=== PATIENT | female | born 1965 | race Caucasian/White ===

== ENCOUNTER 2024-04-22 10:40 | Outpatient (CLI) | payer MEDICARE, MEDICAID, SELFPAY ==
--- NOTE | 2024-04-22 10:48 | XRR_ITS ---
PROCEDURE INFORMATION: Exam: XR Chest Exam date and time: 04/22/2024 11:16 AM Age: 58 years old Clinical indication: Condition or disease; Lung condition and disease; Patient HX: Acute bronchitis and sarcoidosis of lung, cough x 1.5 weeks, mild chest pains and congestion; Additional info: Acute bronchitis/sarcoidosis of lung TECHNIQUE: Imaging protocol: Radiologic exam of the chest. Views: 2 views. Total images: 2 COMPARISON: CT angio chest PE protcl [id number] 07/12/2017 5:24 PM FINDINGS: Tubes, catheters and devices: Surgical clips noted overlying the paramedian left chest anteriorly. Lungs: Clear. Pleural spaces: No pleural effusion identified. Heart/Mediastinum: Cardiomediastinal silhouette is stable.. Bones/joints: Multilevel cervical fusion procedure. Organs: Multiple gallstones again demonstrated in the right upper quadrant of the abdomen. XR/XR chest 2V* [id number] IMPRESSION: No acute cardiopulmonary abnormality identified.
== END 2024-04-22 10:41 | disposition home or self-care (01) ==
LOC: RAD 10:45
PROVIDERS: PCP Nurse Practitioner Family; Visit Provider Nurse Practitioner Family
DX: J20.9 Acute bronchitis, unspecified (principal); D86.0 Sarcoidosis of lung; K80.20 Calculus of gallbladder without cholecystitis without obstruction
CPT/HCPCS: 71046

== ENCOUNTER 2024-10-01 15:13 | Outpatient (CLI) | payer OTHER, SELFPAY ==
--- NOTE | 2024-10-01 | MM_ITS ---
WS: [email or web address] BILATERAL 3D TOMOSYNTHESIS DIGITAL SCREENING MAMMOGRAPHY WITH CAD CLINICAL INFORMATION: ANNUAL SCREENING HISTORY: Screening mammogram. No current complaints. COMPARISON: 2017 TECHNIQUE: Bilateral CC and MLO views. FINDINGS: Scattered fibroglandular densities bilaterally. No suspicious focal mass, asymmetry, calcifications, or architectural distortion. No evidence of malignancy. Vascular calcification. MM/MM scr tomosynthesis [id number] IMPRESSION: DENSITY: There are scattered areas of fibroglandular density. BI-RADS: 2 - Benign. FOLLOW UP: 1 Year Follow-up Recommend return to annual screening mammography.
== END 2024-10-01 15:14 | disposition home or self-care (01) ==
LOC: RAD 15:16
PROVIDERS: PCP Nurse Practitioner Family; Visit Provider Nurse Practitioner Family
DX: Z12.31 Encounter for screening mammogram for malignant neoplasm of breast (principal); R92.323 Mammographic fibroglandular density, bilateral breasts; R92.1 Mammographic calcification found on diagnostic imaging of breast
CPT/HCPCS: 77063; 77067

== ENCOUNTER 2024-10-14 12:34 | Outpatient (CLI) | payer OTHER, MEDICAID, SELFPAY ==
--- NOTE | 2024-10-14 12:41 | XR_ITS ---
WS: [email or web address] Exam: XR knee RT 1-2V [id number] Date/Time of Exam: 10/14/2024 12:45 PM Reason For Exam: RT KNEE PAIN No fracture. The joint compartments are preserved. No joint effusion. Normal soft tissues. Anterior spurring of the patella. XR/XR knee RT 1-2V [id number] IMPRESSION: 1. No fracture or other significant finding.
--- NOTE | 2024-10-14 12:41 | XR_ITS ---
WS: [email or web address] Exam: XR shoulder RT min 2V* [id number] Date/Time of Exam: 10/14/2024 12:45 PM Reason For Exam: RT SHOULDER PAIN No acute fracture. Moderately advanced DJD of the glenohumeral joint noted. Subcortical cyst formation in the humeral head and glenoid. Marginal osteophyte along the medial inferior humeral head. Arthrosis and bone spurring at the AC joint. Normal soft tissues. XR/XR shoulder RT min 2V* [id number] IMPRESSION: 1. Moderately advanced degenerative changes of the shoulder as detailed above. No fracture.
== END 2024-10-14 12:35 | disposition home or self-care (01) ==
PROVIDERS: PCP Nurse Practitioner Family; Visit Provider Nurse Practitioner Family
DX: M19.011 Primary osteoarthritis, right shoulder (principal); M77.8 Other enthesopathies, not elsewhere classified; M85.421 Solitary bone cyst, right humerus; M85.621 Other cyst of bone, right upper arm; M25.711 Osteophyte, right shoulder
CPT/HCPCS: 73030; 73560

== ENCOUNTER → 2025-01-01 09:34 | Outpatient (BNVA) | payer OTHER, SELFPAY | PROVIDERS: PCP Nurse Practitioner Family; Visit Provider Specialist | DX: M25.511 Pain in right shoulder (principal); M85.611 Other cyst of bone, right shoulder; M19.011 Primary osteoarthritis, right shoulder | CPT/HCPCS: 73030; 99205 ==

== ENCOUNTER 2025-01-08 09:12 | Outpatient (CLI) | payer OTHER, SELFPAY ==
--- NOTE | 2025-01-08 09:00 | CT_ITS ---
WS: [id number] CT RIGHT SHOULDER, NONCONTRAST HISTORY: Chronic RIGHT shoulder pain. Technique: All CT scans at [facility] use at least one of these dose optimization techniques: automated exposure control; mA and/or kV adjustment per patient size (includes targeted exams where dose is matched to clinical indication); or iterative reconstruction. DLP: 343.03 mGy.cm COMPARISON: Radiographs 01/01/2025, chest CT 07/12/2017 Mild AC joint arthritis. Small subchondral cysts in the distal clavicle and acromion. No fracture. Normal position of the humeral head and the glenoid. Moderate narrowing of the glenohumeral joint. Numerous subchondral cysts along the glenoid and humeral head. No fracture or loose body. Osteophytic ridging around the humeral head. No muscle atrophy. No joint effusion. Numerous small pulmonary nodules are noted in the RIGHT upper lung and visualized superior aspect of the RIGHT lower lobe. Largest nodule 6 mm in the azygos esophageal recess. There is additional soft tissue along the superior RIGHT hilum. On the localizer image there is a soft tissue mass in the RIGHT infrahilar region. Prior surgical fusion hardware. CT/CT shoulder RT wo con* [id number] IMPRESSION: 1. Advanced glenohumeral joint arthritis with subchondral cystic changes in th e humeral head and glenoid. 2. Mild osteophytic ridging around the humeral head. 3. No fractures. 4. Mild AC joint arthritis. 5. Numerous RIGHT pulmonary nodules and possible RIGHT lower lobe pulmonary ma ss. Recommend follow-up chest CT with IV contrast. Neoplasm needs to be exclude d.
== END 2025-01-08 09:13 | disposition home or self-care (01) ==
PROVIDERS: PCP Nurse Practitioner Family; Visit Provider Specialist
DX: M85.611 Other cyst of bone, right shoulder (principal); M19.011 Primary osteoarthritis, right shoulder
CPT/HCPCS: 73200

== ENCOUNTER 2025-01-13 15:07 | Outpatient (CLI) | payer OTHER, SELFPAY ==
--- NOTE | 2025-01-13 15:15 | MR_ITS ---
WS: [id number] MRI RIGHT SHOULDER NONCONTRAST TECHNIQUE: Sagittal T2, coronal T1, T2 and proton density imaging. Axial gradient PDE imaging. CLINICAL INFORMATION: pain COMPARISON: CT shoulder 01/08/2025 FINDINGS: Moderate to advanced arthritis AC joint with mild downsloping of the acromion. Subacromial spurring with impingement on the distal supraspinatus. Mild narrowing of the subacromial space. Advanced joint space narrowing glenohumeral articulation with subchondral cystic changes in the humeral head and glenoid. Hypertrophic spurring about the medial humeral neck. Subchondral cystic change greater tuberosity. Chronic thinning of the supraspinatus which appears intact. Infraspinatus appears intact. Normal teres minor. Tiny insertional tear distal supraspinatus anteriorly. Subscapularis tendon appears intact. Biceps tendon appears intact within the bicipital groove with medial subluxation along the proximal bicipital groove. Tendinopathy intra-articular biceps tendon. Biceps labral anchor appears intact. Advanced degenerative fraying and fissuring involving the glenoid labrum with advanced underlying subchondral cystic changes in the glenoid. MR/MR shoulder RT wo con* [id number] IMPRESSION: 1. Moderate to advanced arthritis AC joint with mild narrowing of the subacrom ial space and subacromial spurring. 2. Impingement of the distal supraspinatus which appears intact. Tiny insertio nal tear distal supraspinatus. 3. Biceps tendon appears intact within the bicipital groove. Slight medial sub luxation along the proximal bicipital groove. 4. Tendinopathy intra-articular biceps tendon. 5. Advanced joint space narrowing glenohumeral articulation with subchondral c ystic change.
== END 2025-01-13 15:08 | disposition home or self-care (01) ==
LOC: RAD 15:11
PROVIDERS: PCP Nurse Practitioner Family; Visit Provider Specialist
DX: M85.611 Other cyst of bone, right shoulder (principal); M19.011 Primary osteoarthritis, right shoulder; M75.41 Impingement syndrome of right shoulder; S46.011A Strain of muscle(s) and tendon(s) of the rotator cuff of right shoulder, initial encounter; X58.XXXA Exposure to other specified factors, initial encounter; M75.21 Bicipital tendinitis, right shoulder
CPT/HCPCS: 73221

== ENCOUNTER 2025-01-15 15:08 | Outpatient (CLI) | payer OTHER, SELFPAY | END 2025-01-15 15:09 | disposition home or self-care (01) | LOC: SPT 15:08 | PROVIDERS: PCP Nurse Practitioner Family; Visit Provider Specialist | DX: Z46.89 Encounter for fitting and adjustment of other specified devices (principal); M25.511 Pain in right shoulder | CPT/HCPCS: A4565 ==

== ENCOUNTER 2025-02-19 13:11 | Outpatient (CLI) | payer OTHER, SELFPAY ==
--- NOTE | 2025-02-19 13:21 | CTR_ITS ---
PROCEDURE INFORMATION: Exam: CT Chest With Contrast; Diagnostic Exam date and time: 02/19/2025 1:37 PM Age: 59 years old Clinical indication: Condition or disease; Lung condition and disease; Pulmonary nodule, solitary; Additional info: Lung nodules TECHNIQUE: Imaging protocol: Diagnostic computed tomography of the chest with contrast. Radiation optimization: All CT scans at this facility use at least one of these dose optimization techniques: automated exposure control; mA and/or kV adjustment per patient size (includes targeted exams where dose is matched to clinical indication); or iterative reconstruction. Contrast material: OMNI 350; Contrast volume: 100 ml; Contrast route: INTRAVENOUS (IV); COMPARISON: MR shoulder RT wo con* [id number] 01/13/2025 3:28 PM, CT chest contrast dated 07/12/2017 RADIATION DOSE METRICS: Total DLP (mGy-cm): 486.66 FINDINGS: Thyroid: Subcentimeter hypoattenuating thyroid nodules are present. No follow-up is recommended. Lungs: No confluent consolidation. Subsegmental atelectasis of the right middle lobe is present. The trachea is patent without endobronchial lesions. Interval development of bilateral pulmonary nodules. Reference nodules as below:. 3 mm right upper lobe nodule (series 5, image 17). 5 mm right lower lobe nodule (series 5, image 34). 9 mm right lower lobe nodule (series 5, image 35). 4 mm subpleural left lower lobe nodule (series 5, image 40) Pleural spaces: No pleural effusion. No pneumothorax is seen. Heart: The heart is normal in size. No pericardial effusion. Coronary arteries: No substantial coronary atherosclerosis is seen. Lymph nodes: No axillary, supraclavicular, mediastinal, or hilar lymphadenopathy is noted. Of note, a right hilar lymph nodes measure up to 1.2/1.3 cm short axis, at the upper limits of normal (series 4 image 33 and 28). Vasculature: The aorta is normal in course and caliber. Gallbladder and biliary ducts: Cholelithiasis is present without wall thickening or pericholecystic fluid. Pancreas: A 0.8 cm hyperattenuating lesion is identified in the pancreatic body (series 4, image 61). Bones/joints: Partially imaged cervical fusion hardware is noted. No lytic or blastic lesions. No acute osseous abnormality. Soft tissues: Otherwise, the remaining imaged upper abdominal viscera are within normal limits. The soft tissues are within normal limits. CT/CT chest w con* [id number] IMPRESSION: 1. Interval development of bilateral pulmonary nodules with hilar lymph nodes measuring at the upper limits normal. Findings may be licensing representative of the provided clinical history of sarcoidosis. For patients at low risk (minimal or absent history of smoking and of other known risk factors), recommend CT Chest at 3-6 months, then consider CT Chest at 18-24 months. For patients at high risk (history of smoking or of other known risk factors), recommend CT Chest at 3-6 months, then CT Chest at 18-24 months. (Reference: Alan) 2. Cholelithiasis without evidence of acute cholecystitis. 3. 8 mm enhancing pancreatic lesion. Recommend follow-up pancreatic protocol CT or MRI abdomen with and without contrast to evaluate for/exclude neuroendocrine tumor. COMMENTS: Consistent with the [employer] [place] [employer]'s Incidental Findings Committee white paper (J Am Karrie Radiol 2015): In patients aged 35 years and older with an incidental thyroid nodule equal to or greater than 1.[address], MRI or extrathyroidal US, further evaluation with dedicated thyroid US is recommended for patients with normal life expectancy and without comorbidities. For smaller nodules without suspicious features, no further evaluation or follow up is recommended. REFERENCES: Alan Alvarez, et al. Guidelines for Management of Incidental Pulmonary Nodules Detected on CT Images: From the [employer] 2017. Radiology. 2017;284(1):228-243.
[2025-02-19] MEDS: iohexol 350 mg/mL 500 mL Btl (per mL) IV (13:47)
== END 2025-02-19 13:12 | disposition home or self-care (01) ==
LOC: RAD 13:13
PROVIDERS: PCP Nurse Practitioner Family; Visit Provider Nurse Practitioner Family
DX: R91.8 Other nonspecific abnormal finding of lung field (principal); N28.9 Disorder of kidney and ureter, unspecified; K86.2 Cyst of pancreas; Z87.891 Personal history of nicotine dependence
CPT/HCPCS: 71260

== ENCOUNTER 2025-04-02 14:24 | Outpatient (CLI) | payer OTHER, SELFPAY ==
--- NOTE | 2025-04-02 14:33 | MR_ITS ---
WS: [email or web address] MRI ABDOMEN WITH AND WITHOUT CONTRAST. COMPARISON: CT 04/12/2010, chest CT 02/19/2025 Multiplanar, multisequence imaging is performed with and without contrast. Sagittal and axial T1 fat sat sequences post-MultiHance 20 cc IV. Pancreas: Normal size pancreas. No enhancing pancreatic mass is identified. Pancreas is normal size. No duct dilatation. No peripancreatic fluid. The area noted within the pancreas on the prior CT is not definitely evident. This is a very small pancreatic lesion as seen on the CT may not be visualized due to volume averaging and slice selection. Liver is very mildly enlarged. No intrahepatic mass visualized. No intrahepatic duct dilatation. Normal portal vein. Cholelithiasis without acute cholecystitis. Normal common bile duct. Spleen measures 13.2 cm in length which is similar size to a prior CT from 2014. No adrenal mass. Kidneys are normal size with no obstruction. 8 mm cortical cyst superior lateral LEFT renal cortex. Normal aorta. No ascites or adenopathy. MR/MR abdomen wo/w con* [id number] IMPRESSION: 1. Previously described pancreatic lesion is not identified by MRI. The lesion did appear to be real by the CT exam. Suggest 3-month CT follow-up for pancrea tic protocol. 2. No pancreatic duct dilatation or pancreatitis. 3. Cholelithiasis without acute cholecystitis. 4. No ascites or adenopathy. 5. 8 mm cortical cyst superior pole LEFT kidney.
[2025-04-02] MEDS: gadobenate dimeglumine 20 mL vial 19 ML IV (15:26)
== END 2025-04-02 14:25 | disposition home or self-care (01) ==
LOC: RAD 14:26
PROVIDERS: PCP Nurse Practitioner Family; Visit Provider Nurse Practitioner Family
DX: K86.89 Other specified diseases of pancreas (principal); K80.20 Calculus of gallbladder without cholecystitis without obstruction; N28.1 Cyst of kidney, acquired
CPT/HCPCS: 74183

== ENCOUNTER → 2025-05-05 12:58 | Outpatient (BNVA) | payer OTHER, SELFPAY | PROVIDERS: PCP Nurse Practitioner Family; Visit Provider Internal Medicine | DX: D86.0 Sarcoidosis of lung (principal); R93.89 Abnormal findings on diagnostic imaging of other specified body structures; R91.8 Other nonspecific abnormal finding of lung field; Z87.01 Personal history of pneumonia (recurrent); T78.40XA Allergy, unspecified, initial encounter; X58.XXXA Exposure to other specified factors, initial encounter; J44.9 Chronic obstructive pulmonary disease, unspecified; J47.9 Bronchiectasis, uncomplicated; J84.9 Interstitial pulmonary disease, unspecified; J84.10 Pulmonary fibrosis, unspecified | CPT/HCPCS: 36415; 82164; 82784; 85025; 85651; 86003; 99204; Q3014 ==

== ENCOUNTER 2025-05-28 09:07 | Outpatient (CLI) | payer OTHER, SELFPAY | END 2025-05-28 09:08 | disposition home or self-care (01) | LOC: RT 09:10 | PROVIDERS: PCP Nurse Practitioner Family; Visit Provider Internal Medicine | DX: J44.9 Chronic obstructive pulmonary disease, unspecified (principal) | CPT/HCPCS: 94060; 94726; 94729 ==

== ENCOUNTER → 2025-06-05 11:04 | Outpatient (BNVA) | payer OTHER, SELFPAY | PROVIDERS: PCP Nurse Practitioner Family; Visit Provider Internal Medicine | DX: D86.0 Sarcoidosis of lung (principal); J45.909 Unspecified asthma, uncomplicated; R91.8 Other nonspecific abnormal finding of lung field; R93.89 Abnormal findings on diagnostic imaging of other specified body structures; Z87.01 Personal history of pneumonia (recurrent); J44.9 Chronic obstructive pulmonary disease, unspecified | CPT/HCPCS: 99214; Q3014 ==

== ENCOUNTER → 2025-06-09 10:50 | Outpatient (BNVA) | payer MEDICARE, SELFPAY | PROVIDERS: PCP Nurse Practitioner Family; Visit Provider Specialist | DX: M19.011 Primary osteoarthritis, right shoulder (principal); M85.611 Other cyst of bone, right shoulder | CPT/HCPCS: 73030; 99214 ==